=== PATIENT | female | born 1925 | race Caucasian/White ===

== ENCOUNTER 2017-08-17 03:58 | Observation (INO) | payer OTHER, BC ==
[2017-08-17] MEDS ORDERED: NA CHLORIDE 0.9% 1,000 ML ONE (05:12)
[2017-08-17] MEDS ORDERED: METOPROLOL TAR 25 MG TAB ONE (05:12)
[2017-08-17] MEDS ORDERED: ASPIRIN 81 MG CHEWABLE TABLET ONE (05:12)
[2017-08-17] MEDS ORDERED: LORazepam 2 MG/ML VIAL ONE (05:12)
[2017-08-17 05:16] LABS: Absolute Lymphocytes (CBC) 1.3 K/uL (0.7-4.9); Absolute Monocytes 0.6 K/uL (0.1-1.3); Absolute Neutrophil 5.7 K/uL (1.8-8.0); Basophils % 0.5 % (0-1.3); Eosinophils % 2.5 % (0-4.4); Hematocrit 42.6 % (36.0-45.0); Lymphocytes % 16.5 % (15.3-44.8); MCH 30.9 pg (27.0-35.0); MCV 92.9 fL (80-100); MPV 8.7 fL (7.6-11.3); Monocytes % 7.4 % (3.3-12.3); RBC Red Blood Cell Count 4.59 M/uL (3.86-4.86)
[2017-08-17 05:21] LABS: Protime INR 1.04
[2017-08-17 05:29] LABS: Urine Blood TRACE (NEG); Urine Glucose NEGATIVE (NEG); Urine Protein 3+ (NEG); Urine Specific Gravity 1.025 (1.005-1.030); Urine pH 7.5 (5.0-7.0)
[2017-08-17 05:57] LABS: ALT/SGPT 30 U/L (12-78); AST/SGOT 24 U/L (15-37); Albumin 4.2 g/dL (3.4-5.0); Alkaline Phosphatase 85 U/L (45-117); BUN Blood Urea Nitrogen 14 mg/dL (7-18); Bicarbonate 31 mmol/L (21-32); Bilirubin Direct < 0.1 mg/dL (0-0.2); Bilirubin Total 0.4 mg/dL (0.2-1.0); CKMB Creatine Kinase MB < 1.0 ng/mL (0.3-3.6); Creatine Phosphokinase 69 U/L (26-192); Glucose Level 181 mg/dL (74-106); Lipase 117 U/L (73-393); Potassium 3.3 mmol/L (3.5-5.1); Protein, Total 8.6 g/dL (6.4-8.2); Sodium Level 131 mmol/L (136-145); Thyroid Stimulating Hormone 2.64 uIU/mL (0.36-3.74)
[2017-08-17] MEDS ORDERED: IPRATROPIUM BROM 0.5MG/2.5ML ONE (06:07)
[2017-08-17] MEDS ORDERED: LEVALBUTEROL 1.25 MG/3 ML NEB ONE (06:08)
--- NOTE | 2017-08-17 06:18 | ER ---
Nurse's Notes [facility] Name: Lisa Martinez Age: 89 yrs Sex: Female : 1925 Arrival Date: 08/17/2017 Time: 04:07 Bed 17 Private MD: Diagnosis: Palpitations;Essential (primary) hypertension;Dyspnea;Hypokalemia;Nonrheumatic aortic (valve) stenosis Presentation: 08/17 04:09 Presenting complaint: EMS states: they were toned out for report of pt waking up with bb "night sweats and her heart pounding". Transition of care: patient was not received from another setting of care. Onset of symptoms was August 17, 2017. Risk Assessment: Do you want to hurt yourself or someone else? Patient reports no desire to harm self or others. Initial Sepsis Screen: Does the patient meet any 2 criteria? No. Patient's initial sepsis screen is negative. Does the patient have a suspected source of infection? No. Patient's initial sepsis screen is negative. 04:09 Method Of Arrival: EMS: [facility] bb 04:09 Acuity: CHUYITA 2 bb 04:19 Care prior to arrival: IV initiated. 20 GA, in the left antecubital area, Glucose bb check: 182. Historical: - Allergies: 04:10 Norvasc; bb - Home Meds: 04:12 aspirin 81 mg Oral chew 1 tab once daily [Active]; atorvastatin 40 mg Oral tab 1 tab bb nightly [Active]; Caltrate 600 + D 600 mg (1,500 mg)-800 unit Oral chew daily [Active]; cetirizine 10 mg Oral tab 1 tab once daily [Active]; citalopram 20 mg tab 1 tab once daily [Active]; clonidine 0.3 mg/24 hr transdermal ptwk 1 patch once wkly [Active]; doxazosin 2 mg Oral tab 1 tab twice a day [Active]; flecainide 50 mg Oral tab 1 tab every 12 hours [Active]; fluoxetine 40 mg Oral cap 1 cap once daily [Active]; hydralazine 25 mg Oral tab 3 times per day [Active]; levothyroxine 75 mcg tab 1 tab once daily [Active]; metoprolol tartrate 50 mg Oral tab 1 tab twice a day [Active]; nifedipine 30 mg Oral TbER 1 tab once daily [Active]; omeprazole 40 mg Oral cpDR 1 cap once daily [Active]; polyethylene glycol 3350 17 gram/dose Oral powd twice a day [Active]; Senna Plus 8.6-50 mg Oral tab 2 tabs twice a day [Active]; Systane 0.4-0.3 % ophthalmic drop four times a day [Active]; triamterene-hydrochlorothiazid 37.5-25 mg Oral cap 1 cap once daily [Active]; - PMHx: 04:12 Aortic Stenosis; CAD; constipation; Hyperlipidemia; Hypertension; spinal stenosis; bb - Immunization history:: Adult Immunizations up to date. - Social history:: Smoking status: Patient/guardian denies using tobacco, Patient/guardian denies using alcohol, street drugs. - Ebola Screening: : No symptoms or risks identified at this time. - Family history:: pertinent for. Screenin:20 Abuse screen: Denies threats or abuse. Nutritional screening: No deficits noted. bb Tuberculosis screening: Possible symptoms: recent night sweats. Fall Risk Secondary diagnosis (15 points) impaired mobility, IV access (20 points). Ambulatory Aid- Crutches/Cane/Walker (15 pts). Mental Status- Oriented to own ability (0 pts). Total Moreno Fall Scale indicates High Risk Score (45 or more points). Fall prevention measures have been instituted. Side Rails Up X 2 As available patient and family educated on Fall Prevention Program and Strategies. Assessment: 04:24 General: Appears in no apparent distress. comfortable, obese, Behavior is calm, bp cooperative, appropriate for age. Pain: Denies pain. Neuro: Level of Consciousness is awake, alert, obeys commands, Oriented to person, place, time, situation, Appropriate for age. Cardiovascular: No deficits noted. Cardiovascular: Rhythm is sinus rhythm. Respiratory: Airway is patent Respiratory effort is even, unlabored, Respiratory pattern is regular, symmetrical. GI: No signs and/or symptoms were reported involving the gastrointestinal system. : No signs and/or symptoms were reported regarding the genitourinary system. EENT: No deficits noted. Derm: No deficits noted. Musculoskeletal: Circulation, motion, and sensation intact. Range of motion: intact in all extremities. 05:15 Reassessment: PT RESTING QUIETLY, NO ACUTE S/S AT THIS TIME. MILD HTN ON MONITOR. bp RESULTS PENDING. 07:15 Reassessment: Dr. Narayanan at bedside, notified of increased BP, states "I'll put orders in jl7 on [employer].". Vital Signs: 04:12 BP 201 / 88; Pulse 78; Resp 18 S; Temp 98.3(O); Pulse Ox 88% on R/A; Weight 68.04 kg bb (R); Height 5 ft. 2 in. (157.48 cm) (R); 04:13 Pulse Ox 96% on 3 lpm NC; bb 05:00 BP 197 / 70; Pulse 73; Resp 16; Pulse Ox 92% ; bp 06:00 BP 170 / 65; Pulse 63; Resp 16; Pulse Ox 97% on NC; bp 06:30 BP 152 / 63; Pulse 62; Resp 16; Pulse Ox 100% ; bp 07:11 BP 184 / 63; Pulse 72; Resp 16; Pulse Ox 96% ; jl7 04:12 Body Mass Index 27.44 (68.04 kg, 157.48 cm) bb ED Course: 04:07 Patient arrived in ED. bp 04:07 Chester Jung, RN is Primary Nurse. bp 04:10 Triage completed. bb 04:12 Arm band placed on Patient placed in an exam room, on a stretcher, on color television console monitor, bb on pulse oximetry. 04:13 Oxygen administration via nasal cannula \\T\\ 3L/min Response to oxygen therapy: symptoms bb improved. 04:16 EKG done, by field artillery targeting technician. reviewed by Felice Quick MD. oe 04:21 Patient has correct armband on for positive identification. Bed in low position. Call bb light in reach. Side rails up X2. color television console monitor on. Pulse ox on. NIBP on. 04:25 Felice Quick MD is Attending Physician. remi 04:25 Maintain EMS IV. Dressing intact. Good blood return noted. Site clean \\T\\ dry. Gauge \\T\\ bp site: 20 GAUGE LEFT AC. 04:55 X-ray completed. Portable x-ray completed in exam room. Patient tolerated procedure kw well. 04:56 XRAY Chest (1 view) In Process Unspecified. EDMS 06:14 Manuel Narayanan MD is Hospitalizing Provider. remi 06:35 No provider procedures requiring assistance completed. Patient admitted, IV remains in bp place. Administered Medications: 04:45 Drug: NS 0.9% 1000 ml Route: IV; Rate: 125 ml/hr; Site: left antecubital; bp 06:36 Follow up: IV Status: Infusion continued upon admission bp 05:00 Drug: Ativan 0.5 mg Route: IVP; Site: left antecubital; bp 05:57 Follow up: Response: Anxiety decreased bp 05:00 Drug: Lopressor 25 mg Route: PO; bp 05:57 Follow up: Response: No adverse reaction bp 05:00 Drug: Aspirin 81 mg Route: PO; bp 05:58 Follow up: Response: No adverse reaction bp 06:05 Drug: Xopenex 2.5 mg Route: Inhalation; bp 06:05 Drug: AtroVENT Aerosol 0.5 mg Route: Inhalation; bp 06:30 Drug: Potassium Effervescent Tablet 25 mEq Route: PO; bp 06:35 Follow up: Response: No adverse reaction bp Outcome: 06:18 Decision to Hospitalize by Provider. remi 07:54 Admitted to Tele accompanied by tech, via wheelchair, room 201, with chart, Report jl7 called to MAHIN Feng 07:54 Condition: stable 07:54 Discharge instructions given to patient, family, Instructed on the need for admit, Demonstrated understanding of instructions. 07:55 Patient left the ED. jl7 Signatures: Dispatcher [employer] EDMS Felice Quick MD MD cha Ballard, Brenda, RN RN Piedad Barahona Orlando oe Leal, Jahala, RN RN Chester Lima RN RN bp Corrections: (The following items were deleted from the chart) 04:19 04:12 Home Meds: donepezil 5 mg Oral tab 1 tab once daily; obinna yeboah 04: 04:12 Home Meds: fentanyl 12 mcg/hr Topical pt72 1 patch every 72 hours; obinna yeboah : 04:12 Home Meds: Tylenol-Codeine #3 Oral 1 tab every 6 hours; obinna yeboah
--- NOTE | 2017-08-17 06:18 | EDPHYS ---
Physician Documentation [facility] Name: Lisa Martinez Age: 89 yrs Sex: Female : 1925 Arrival Date: 08/17/2017 Time: 04:07 Bed 17 Private MD: ED Physician Felice Quick HPI: 08/17 04:35 This 89 yrs old Female presents to ER via EMS with complaints of Palpitations.remi 04:35 The patient presents with a history of irregular heart beat, heart racing. Context: The remi symptoms occur during sleep, with anxiety, with light activity. Onset: The symptoms/episode began/occurred last night. Duration: The patient or guardian reports multiple episodes, that have now resolved. Modifying factors: The symptoms are aggravated by nothing. The symptoms are alleviated by nothing. Associated signs and symptoms: The patient has no apparent associated signs or symptoms. The patient has not experienced similar symptoms in the past. Historical: - Allergies: 04:10 Norvas; bb - Home Meds: 04:12 aspirin 81 mg Oral chew 1 tab once daily [Active]; atorvastatin 40 mg Oral tab 1 tab bb nightly [Active]; Caltrate 600 + D 600 mg (1,500 mg)-800 unit Oral chew daily [Active]; cetirizine 10 mg Oral tab 1 tab once daily [Active]; citalopram 20 mg tab 1 tab once daily [Active]; clonidine 0.3 mg/24 hr transdermal ptwk 1 patch once wkly [Active]; doxazosin 2 mg Oral tab 1 tab twice a day [Active]; flecainide 50 mg Oral tab 1 tab every 12 hours [Active]; fluoxetine 40 mg Oral cap 1 cap once daily [Active]; hydralazine 25 mg Oral tab 3 times per day [Active]; levothyroxine 75 mcg tab 1 tab once daily [Active]; metoprolol tartrate 50 mg Oral tab 1 tab twice a day [Active]; nifedipine 30 mg Oral TbER 1 tab once daily [Active]; omeprazole 40 mg Oral cpDR 1 cap once daily [Active]; polyethylene glycol 3350 17 gram/dose Oral powd twice a day [Active]; Senna Plus 8.6-50 mg Oral tab 2 tabs twice a day [Active]; Systane 0.4-0.3 % ophthalmic drop four times a day [Active]; triamterene-hydrochlorothiazid 37.5-25 mg Oral cap 1 cap once daily [Active]; - PMHx: 04:12 Aortic Stenosis; CAD; constipation; Hyperlipidemia; Hypertension; spinal stenosis; bb - Immunization history:: Adult Immunizations up to date. - Social history:: Smoking status: Patient/guardian denies using tobacco, Patient/guardian denies using alcohol, street drugs. - Ebola Screening: : No symptoms or risks identified at this time. - Family history:: pertinent for. ROS: 04:35 Constitutional: Negative for fever, chills, and weight loss, Eyes: Negative for injury, remi pain, redness, and discharge, ENT: Negative for injury, pain, and discharge, Neck: Negative for injury, pain, and swelling, Respiratory: Negative for shortness of breath, cough, wheezing, and pleuritic chest pain, Abdomen/GI: Negative for abdominal pain, nausea, vomiting, diarrhea, and constipation, Back: Negative for injury and pain, : Negative for injury, bleeding, discharge, and swelling, MS/Extremity: Negative for injury and deformity, Skin: Negative for injury, rash, and discoloration, Neuro: Negative for headache, weakness, numbness, tingling, and seizure, Psych: Negative for depression, anxiety, suicide ideation, homicidal ideation, and hallucinations, Allergy/Immunology: Negative for hives, rash, and allergies, Endocrine: Negative for neck swelling, polydipsia, polyuria, polyphagia, and marked weight changes, Hematologic/Lymphatic: Negative for swollen nodes, abnormal bleeding, and unusual bruising. 04:35 Cardiovascular: Positive for chest pain, palpitations. Exam: 04:35 Constitutional: This is a well developed, well nourished patient who is awake, alert, remi and in no acute distress. Head/Face: Normocephalic, atraumatic. Eyes: Pupils equal round and reactive to light, extra-ocular motions intact. Lids and lashes normal. Conjunctiva and sclera are non-icteric and not injected. Cornea within normal limits. Periorbital areas with no swelling, redness, or edema. ENT: Nares patent. No nasal discharge, no septal abnormalities noted. Tympanic membranes are normal and external auditory canals are clear. Oropharynx with no redness, swelling, or masses, exudates, or evidence of obstruction, uvula midline. Mucous membranes moist. Neck: Trachea midline, no thyromegaly or masses palpated, and no cervical lymphadenopathy. Supple, full range of motion without nuchal rigidity, or vertebral point tenderness. No Meningismus. Chest/axilla: Normal chest wall appearance and motion. Nontender with no deformity. No lesions are appreciated. Cardiovascular: Regular rate and rhythm with a normal S1 and S2. No gallops, murmurs, or rubs. Normal PMI, no JVD. No pulse deficits. Respiratory: Lungs have equal breath sounds bilaterally, clear to auscultation and percussion. No rales, rhonchi or wheezes noted. No increased work of breathing, no retractions or nasal flaring. Abdomen/GI: Soft, non-tender, with normal bowel sounds. No distension or tympany. No guarding or rebound. No evidence of tenderness throughout. Back: No spinal tenderness. No costovertebral tenderness. Full range of motion. Female : Normal external genitalia. Skin: Warm, dry with normal turgor. Normal color with no rashes, no lesions, and no evidence of cellulitis. MS/ Extremity: Pulses equal, no cyanosis. Neurovascular intact. Full, normal range of motion. Neuro: Awake and alert, GCS 15, oriented to person, place, time, and situation. Cranial nerves II-XII grossly intact. Motor strength 5/5 in all extremities. Sensory grossly intact. Cerebellar exam normal. Normal gait. Psych: Awake, alert, with orientation to person, place and time. Behavior, mood, and affect are within normal limits. 06:09 Musculoskeletal/extremity: DVT Exam: No signs of deep vein thrombosis. no pain, no remi swelling, no tenderness, negative Homans' sign noted on exam, no appreciated bluish discoloration, no erythema, no increased warmth. Vital Signs: 04:12 BP 201 / 88; Pulse 78; Resp 18 S; Temp 98.3(O); Pulse Ox 88% on R/A; Weight 68.04 kg bb (R); Height 5 ft. 2 in. (157.48 cm) (R); 04:13 Pulse Ox 96% on 3 lpm NC; bb 05:00 BP 197 / 70; Pulse 73; Resp 16; Pulse Ox 92% ; bp 06:00 BP 170 / 65; Pulse 63; Resp 16; Pulse Ox 97% on NC; bp 06:30 BP 152 / 63; Pulse 62; Resp 16; Pulse Ox 100% ; bp 07:11 BP 184 / 63; Pulse 72; Resp 16; Pulse Ox 96% ; jl7 04:12 Body Mass Index 27.44 (68.04 kg, 157.48 cm) bb MDM: 04:25 Patient medically screened. [facility] 04:37 Data reviewed: vital signs, nurses notes, lab test result(s), EKG, radiologic studies, remi plain films. 08/17 04:28 Order name: Basic Metabolic Panel; Complete Time: 06:07 [facility] 08/17 04:28 Order name: CBC with Diff; Complete Time: 05:41 [facility] 08/17 04:28 Order name: Ckmb; Complete Time: 06:07 [facility] 08/17 04:28 Order name: CPK; Complete Time: 06:07 [facility] 08/17 04:28 Order name: LFT's; Complete Time: 06:07 [facility] 08/17 04:28 Order name: Magnesium; Complete Time: 06:07 [facility] 08/17 04:28 Order name: PT-INR; Complete Time: 05:39 [facility] 08/17 04:28 Order name: Ptt, Activated; Complete Time: 05:39 [facility] 08/17 04:28 Order name: Troponin (emerg Dept Use Only) [facility] 08/17 04:28 Order name: Lipase; Complete Time: 06:07 [facility] 08/17 04:28 Order name: TSH; Complete Time: 06:07 [facility] 08/17 04:28 Order name: Urine Culture [facility] 08/17 05:02 Order name: Urine Dipstick--Ancillary (enter results); Complete Time: 05:39 08/17 06:09 Order name: BNP [facility] 08/17 04:28 Order name: XRAY Chest (1 view) [facility] 08/17 04:28 Order name: EKG; Complete Time: 04:29 [facility] 08/17 06:23 Order name: CONS Physician Consult [facility] 08/17 06:28 Order name: Echo with Doppler [facility]MD 08/17 06:28 Order name: Basic Metabolic Panel [facility] 08/17 06:28 Order name: Basic Metabolic Panel [facility] 08/17 06:28 Order name: Troponin I EDMD 08/17 06:28 Order name: Troponin I [facility]MD 08/17 06:28 Order name: Troponin I [facility]MD 08/17 04:28 Order name: Cardiac monitoring; Complete Time: 04:30 [facility] 08/17 04:28 Order name: EKG - Nurse/Tech; Complete Time: 04:30 [facility] 08/17 04:28 Order name: IV Saline Lock; Complete Time: 04:30 [facility] 08/17 04:28 Order name: Labs collected and sent; Complete Time: 05:05 [facility] 08/17 04:28 Order name: O2 Per Protocol; Complete Time: 04:30 [facility] 08/17 04:28 Order name: O2 Sat Monitoring; Complete Time: 04:30 [facility] 08/17 04:28 Order name: Urine Dipstick-Ancillary (obtain specimen); Complete Time: 05:06 [facility] 08/17 06:28 Order name: Consistent Carb (ADA) [address] Rick EDMS 08/17 06:28 Order name: EKG Electrocardiogram EDMS 08/17 06:28 Order name: EKG Electrocardiogram EDMS 08/17 06:28 Order name: EKG Electrocardiogram EDMS 08/17 06:29 Order name: EKG Electrocardiogram EDMS Administered Medications: 04:45 Drug: NS 0.9% 1000 ml Route: IV; Rate: 125 ml/hr; Site: left antecubital; bp 06:36 Follow up: IV Status: Infusion continued upon admission bp 05:00 Drug: Ativan 0.5 mg Route: IVP; Site: left antecubital; bp 05:57 Follow up: Response: Anxiety decreased bp 05:00 Drug: Lopressor 25 mg Route: PO; bp 05:57 Follow up: Response: No adverse reaction bp 05:00 Drug: Aspirin 81 mg Route: PO; bp 05:58 Follow up: Response: No adverse reaction bp 06:05 Drug: Xopenex 2.5 mg Route: Inhalation; bp 06:05 Drug: AtroVENT Aerosol 0.5 mg Route: Inhalation; bp 06:30 Drug: Potassium Effervescent Tablet 25 mEq Route: PO; bp 06:35 Follow up: Response: No adverse reaction bp Disposition: 08/17/17 06:18 Hospitalization ordered by Manuel Narayanan for Observation. Preliminary diagnosis are Palpitations, Essential (primary) hypertension, Dyspnea, Hypokalemia, Nonrheumatic aortic (valve) stenosis. - Bed requested for Telemetry/MedSurg (observation). - Status is Observation. jl7 - Condition is Fair. - Problem is new. - Symptoms have improved. UTI on Admission? No Signatures: Dispatcher [employer] EDMS Tasha Mulligan RN RN mw Anderson, Corey, MD MD cha Ballard, Brenda, MAHIN RN Ruth Hernandez RN RN jl7 Chester Jung RN RN bp Botello, Elizabeth eb Corrections: (The following items were deleted from the chart) 04:19 04:12 Home Meds: donepezil 5 mg Oral tab 1 tab once daily; bb bb 04:19 04:12 Home Meds: fentanyl 12 mcg/hr Topical pt72 1 patch every 72 hours; obinna yeboah 04:19 04:12 Home Meds: Tylenol-Codeine #3 Oral 1 tab every 6 hours; obinna yeboah 06:28 06:18 Hospitalization Ordered by Manuel Narayanan MD for Observation. Preliminary diagnosis eb is Palpitations; Essential (primary) hypertension; Dyspnea; Hypokalemia. Bed requested for Telemetry/MedSurg (observation). Status is Observation. Condition is Fair. Problem is new. Symptoms have improved. UTI on Admission? No. remi 06:31 06:28 08/17/2017 06:18 Hospitalization Ordered by Manuel Narayanan MD for Observation. mw Preliminary diagnosis is Palpitations; Essential (primary) hypertension; Dyspnea; Hypokalemia. Bed requested for Telemetry/MedSurg (observation). Status is Observation. Condition is Fair. Problem is new. Symptoms have improved. UTI on Admission? No. eb 07:19 06:31 08/17/2017 06:18 Hospitalization Ordered by Manuel Narayanan MD for Observation. remi Preliminary diagnosis is Palpitations; Essential (primary) hypertension; Dyspnea; Hypokalemia. Bed requested for Telemetry/MedSurg (observation). Status is Observation. Condition is Fair. Problem is new. Symptoms have improved. UTI on Admission? No. mw 07:55 07:19 08/17/2017 06:18 Hospitalization Ordered by Manuel Narayanan MD for Observation. jl7 Preliminary diagnosis is Palpitations; Essential (primary) hypertension; Dyspnea; Hypokalemia; Nonrheumatic aortic (valve) stenosis. Bed requested for Telemetry/MedSurg (observation). Status is Observation. Condition is Fair. Problem is new. Symptoms have improved. UTI on Admission? No. remi
[2017-08-17] MEDS ORDERED: ACETAMINOPHEN 500 MG TAB PO PRN (06:22)
[2017-08-17] MEDS ORDERED: ONDANSETRON 4 MG/2 ML VIAL IV PRN (06:22)
[2017-08-17] MEDS ORDERED: MORPHINE 4 MG/ML SYR IV PRN (06:22)
[2017-08-17] MEDS ORDERED: POTASSIUM 25 MEQ EFFERV TAB ONE (06:35)
[2017-08-17] MEDS: ASPIRIN EC 81 MG TAB PO SCH (08:18)
[2017-08-17] MEDS: VALSARTAN 80 MG TAB PO SCH ×2 (08:45→09:00)
[2017-08-17] MEDS: DOXAZOSIN 2 MG TAB PO SCH ×2 (08:45→21:17)
[2017-08-17] MEDS: HYDRALAZINE HCL 10 MG TABLET PO SCH ×3 (08:45→21:00)
--- NOTE | 2017-08-17 08:46 | RAD REPORT ---
EXAM DESCRIPTION: RAD - Chest Single View - 08/17/2017 4:56 am CLINICAL HISTORY: COUGH Chest pain. COMPARISON: Chest Single View dated 02/09/2017; Chest Single View dated 11/28/2016; Chest Single View dated 05/09/2016; Chest Single View dated 05/08/2016 FINDINGS: Portable technique limits examination quality. The lungs are grossly clear. The heart is normal in size. No displaced fractures. IMPRESSION: No acute intrathoracic process suspected.
[2017-08-17 08:48] VITALS: BMI 28.0
[2017-08-17] MEDS ORDERED: CLONIDINE 0.3 MG/PATCH TD SCH (09:00)
--- NOTE | 2017-08-17 10:50 | EKG ---
Test Date: 2017-08-17 Test Time: 04:10:09 Embossing Press Operator Apprentice: NANCY MEASUREMENT RESULTS: Intervals: Rate: 74 ME: 168 QRSD: 66 QT: 430 QTc: 477 [place]: P: 90 ME: 168 QRS: 42 T: 57 INTERPRETIVE STATEMENTS: Normal sinus rhythm Nonspecific ST abnormality Abnormal ECG Compared to ECG 04/04/2017 07:44:45 ST (T wave) deviation now present Left ventricular hypertrophy no longer present Early repolarization no longer present Electronically Signed On 08-17-17 10:49:32 CDT by Matthew Mendes
[2017-08-17] MEDS: NIFEDIPINE XL 30 MG TABLET PO SCH (11:22)
--- NOTE | 2017-08-17 12:12 | ECHO ---
HEIGHT: 5 ft 2 in WEIGHT: 153 lb 1 oz DATE OF STUDY: 08/17/[address]: Felice Quick MD 2-DIMENSIONAL: YES M.MODE: YES DOPPLER: YES COLOR FLOW: YES TDS: NO PORTABLE: NO DEFINITY: NO BUBBLE STUDY: NO DIAGNOSIS: CHEST PAIN CARDIAC HISTORY: CATHERIZATION: YES SURGERY: NO PROSTHETIC VALVE: NO PACEMAKER: NO MEASUREMENTS (cm) DIASTOLIC (NORMALS) SYSTOLIC (NORMALS) IVSd 1.3 (0.6-1.2) LA Diam 4.2 (1.9-4.0) LVEF 74% LVIDd 3.2 (3.5-5.7) LVIDs 1.9 (2.0-3.5) %FS 41% LVPWd 1.4 (0.6-1.2) Ao Diam 2.4 (2.0-3.7) 2 DIMENSIONAL ASSESSMENT: RIGHT ATRIUM: NORMAL LEFT ATRIUM: DILATED RIGHT VENTRICLE: NORMAL LEFT VENTRICLE: LEFT VENTRICULAR HYPERTROPHY TRICUSPID VALVE: NORMAL MITRAL VALVE: MITRAL ANNULAR CALCIFICATION PULMONIC VALVE: NORMAL AORTIC VALVE: STENOTIC PERICARDIAL EFFUSION: NONE AORTIC ROOT: NORMAL LEFT VENTRICULAR WALL MOTION: LOW LEFT VENTRICULAR COMPLIANCE. DOPPLER/COLOR FLOW: MODERATE AORTIC REGURGITATION, AORTIC STENOSIS AREA 1.0 CENTIMETERS SQUARED. GRADIENT 36mmHg. COMMENTS: MODERATE AORTIC STENOSIS AREA 1.0 CENTIMETERS SQUARED. MODERATE AORTIC REGURGITATION. LEFT VENTRICULAR HYPERTROPHY. NORMAL EJECTION FRACTION. NORMAL EJECTION FRACTION. DIASTOLIC DYSFUNCTION. MITRAL ANNULAR CALCIFICATION. LEFT ATRIAL ENLARGEMENT. TECHNOLOGIST: AVERY MARCUS
[2017-08-17] MEDS: SOTALOL HCL 80 MG TAB PO SCH ×2 (12:53→17:40)
[2017-08-17] MEDS ORDERED: METOPROLOL TAR 25 MG TAB PO SCH (18:00)
--- NOTE | 2017-08-18 01:49 | CON ---
Date of Consultation: 08/17/[address] Narayanan's service on 08/17/2017. I saw the patient on 08/17/2017. Reason For Consultation: Rapid atrial fibrillation, dyspnea on exertion, hypertension, and moderate aortic stenosis. History Of Present Illness: Ms. Martinez is an 89-year-old white woman. She is well known to me from pr evious office visits and admission. She has had a history of moderate aortic stenosis, gastroesophag eal reflux disease, dyslipidemia, hypertension, has had intermittent atrial fibrillation in the past that has resolved on beta-blockers, but she comes back with recurrent atrial fibrillation and rapid v entricular response, weakness, was found to be hypokalemic, slightly low sodium, glucose was 181, neg ative BNP and troponin. By the time I saw her, she has already converted back to normal rhythm. She denied chest pain. Denied syncope. Denied pedal edema, PND, orthopnea. Allergies: NORVASC. Review of Systems: Negative. Social History: Negative. Family History: Negative. Medications: At home include Zocor, aspirin, triamterene with hydrochlorothiazide, Catapres, hydrala zine, Lopressor 75 mg q.h.s., and Prilosec. Physical Examination: General: She appears rather weak, but no acute distress. She was in sinus bradycardia when I saw he r. HEENT: Negative. Neck: Supple with aortic stenosis, bruits in both carotids. Chest: Clear. Cardiac Exam: Revealed a regular rhythm and rate with an S4 gallop and aortic stenosis murmur, 3/6 s ystolic ejection at the right third intercostal space that radiated to the carotid. Abdomen: Obese but benign. Extremities: Revealed trace edema. Diagnostic Data: As stated earlier. Impression And Plan: 1.Recurrent atrial fibrillation. I am going to take her off the Lopressor and try her on Betapace. We will keep her on aspirin. Start Lovenox. Another echocardiogram is pending. 2.Hypertension, well controlled. 3.Dyslipidemia, well controlled. 4.Gastroesophageal reflux disease, well controlled. 5.History of moderate aortic stenosis. 6.Slight hypokalemia and hyponatremia that are being corrected. I will continue to follow the patie nt with Dr. Narayanan. TENISHA/DUONG Voice ID: [id number] Report ID: [id number]
[2017-08-18 04:59] LABS: Absolute Lymphocytes (CBC) 1.7 K/uL (0.7-4.9); Absolute Monocytes 0.8 K/uL (0.1-1.3); Absolute Neutrophil 5.7 K/uL (1.8-8.0); Basophils % 0.7 % (0-1.3); Eosinophils % 3.2 % (0-4.4); Hematocrit 39.7 % (36.0-45.0); Lymphocytes % 19.8 % (15.3-44.8); MCH 31.2 pg (27.0-35.0); MPV 8.4 fL (7.6-11.3); RBC Red Blood Cell Count 4.32 M/uL (3.86-4.86)
[2017-08-18 05:18] LABS: Potassium 3.4 mmol/L (3.5-5.1)
[2017-08-18] MEDS: SOTALOL HCL 80 MG TAB PO SCH (05:38)
--- NOTE | 2017-08-18 05:47 | HP ---
Date of Admission: 08/17/2017 Chief Complaint: Chest pain and fluttering sensation. History Of Present Illness: An 89-year-old female patient with multiple medical problems, living at [facility], was doing fine until around 8 or 8:30 p.m. Yesterday, she started to have this shivering type of feeling/fluttering type of feeling in her chest. Her blood pressure, which was checked by facility staff member, systolic blood pressure was higher than 200. She was given her evening dose of medication. Her blood pressure did come down and a few hours later, she went to bed and around 2 or 3 o'clock in the morning, she woke up from sleep because she was sweating and had that shivering/fluttering type of sensation in her chest and her blood pressure was elevated again at that time. She had some vague chest discomfort. She was sent to emergency room after she was evaluated in ER, She was admitted to the hospital. She was given 1 dose of metoprolol by mouth. When I saw her, her systolic blood pressure was around 186 in the emergency room this morning. Her daughter was present with her at bedside. Allergies: TO AMLODIPINE. Medication List: Reviewed. Review of Systems: Cardiovascular: As mentioned above. Constitutional: As mentioned above. Musculoskeletal: Has chronic arthritis problem. All other systems reviewed are negative. Social History: Negative for smoking or alcohol use. Family History: Significant for stroke, leukemia, coronary artery disease. Past Surgical History: Significant for coronary artery angioplasty and stent placement x2 in 2000, right carotid artery endarterectomy, hysterectomy, tonsillectomy. Past Medical History: Significant for coronary artery disease, hypertension, carotid artery stenosis, hyperlipidemia, osteoarthritis at multiple sites, hypothyroidism, depression, impaired fasting glucose, gastroesophageal reflux disease, aortic valve stenosis. Physical Examination: Vital signs: Reviewed. Temperature 98.3, pulse 78, respiratory rate 18, blood pressure 201/88. Oxygen saturation 88%. Height 5 feet 2 inches. Weight 68.04 kg. General: Awake, alert, oriented, not in distress. HEENT: Head atraumatic, normocephalic. Conjunctivae nonerythematous. Sclerae white. Mouth, no thrush or edema noted. Ears/Nose, no mass, lesion, discharge noted. Neck: Supple. No JVD, lymph nodes, bruit, thyromegaly noted. Lungs: Bilateral good equal air entry. Clear to auscultation. No rhonchi. No rales. Heart: The patient has systolic murmur unchanged. No gallop. Abdomen: Soft, bowel sounds normal. No guarding, rigidity, tenderness, mass, hepatosplenomegaly, distention, or bruit noted. Extremities: No leg edema. No calf tenderness. Skin: No rash, ulcer, cellulitis. Lymphatics: No lymph node enlargement in neck, supraclavicular, infraclavicular region. Neuro: No focal neurological deficit. Chest: Unremarkable. External Genitalia: Deferred. Rectal: Deferred. Laboratory Data: White count 7.8, hemoglobin 14.2, platelets 252. PT, PTT normal. Sodium 131, potassium 3.3, chloride 97, bicarb 31, BUN 14, creatinine 0.80, glucose 181. Liver function tests normal. Troponin less than 0.02. TSH 2.64. Urinalysis; 3+ protein, otherwise normal. Impression: 1. Chest pain. 2. Palpitation. 3. Hypertension. 4. Coronary artery disease. 5. Hyperlipidemia. 6. Hypothyroidism. 7. Depression. 8. Impaired fasting glucose. 9. Osteoarthritis, multiple sites. 10. Carotid artery stenosis. 11. Aortic valve stenosis. 12. Gastroesophageal reflux disease. Plan: Admit the patient to hospital for further evaluation and management of this problem. The patient will be admitted to telemetry. Consult Cardiology. Home medications will be continued per order. We will get serial cardiac enzymes. DVT prophylaxis will be given per order. Details and plan of treatment discussed with her. Echocardiogram done today, results reviewed. YENY/DUONG Voice ID: [id number] MTDJessica
[2017-08-18 08:44] VITALS: O2SAT 94
[2017-08-18] MEDS ORDERED: POTASSIUM CL SA 10 MEQ TAB PO ONE (09:30)
[2017-08-18] MEDS: NIFEDIPINE XL 30 MG TABLET PO SCH (09:43)
[2017-08-18] MEDS: ASPIRIN EC 81 MG TAB PO SCH (09:43)
[2017-08-18] MEDS: DOXAZOSIN 2 MG TAB PO SCH (09:44)
[2017-08-18] MEDS: VALSARTAN 80 MG TAB PO SCH (09:44)
[2017-08-18] MEDS: HYDRALAZINE HCL 10 MG TABLET PO SCH (09:45)
--- NOTE | 2017-08-18 11:11 | EKG ---
Test Date: 2017-08-18 Test Time: 07:14:58 Tie Fastener: KARLA MEASUREMENT RESULTS: Intervals: Rate: 73 KS: 152 QRSD: 72 QT: 452 QTc: 497 [place]: P: 39 KS: 152 QRS: 40 T: 27 INTERPRETIVE STATEMENTS: Normal sinus rhythm LVH with secondary repolarization changes Prolonged QT Abnormal ECG Compared to ECG 08/17/2017 04:10:09 Left ventricular hypertrophy now present Prolonged QT interval now present ST (T wave) deviation still present Electronically Signed On 08-18-17 11:11:02 CDT by Pascual Charles
[2017-08-18 12:52] VITALS: BP 187/79; TEMP 98.3
--- NOTE | 2017-08-19 13:00 | PN ---
Date of Progress Note: 08/18/2017 Ms. Martinez was admitted and seen on 08/17/2017 for aortic stenosis, atrial fibrillation, and weakness. Was taken off beta-irina, placed on Betapace. Remains in sinus rhythm to sinus bradycardia. No s ymptoms. Not a great candidate for anticoagulation because of history of bleeding in the past. I wo uld continue her Betapace and she can go home and she will see me in the office in the next 2 weeks. TENISHA/DUONG Voice ID: [id number] Report ID: [id number]
--- NOTE | 2017-08-19 15:06 | DS ---
Date of Discharge: 08/18/2017 Disposition: Discharged to go to [facility]. Physical Examination: HEENT: Unremarkable. Lungs: Clear to auscultation. Heart: Sounds normal. Abdomen: Soft, bowel sounds normal. No guarding, rigidity, tenderness, or distention. Extremities: No leg edema. Discharge Medications And Instructions: Continue prior home medication except do not give any metoprolol, do not give flecainide. Start sotalol 80 mg 2 times a day. Follow up at my office as per her schedule appointment which is next month in August and follow with Dr. Mendes in 1-2 weeks. Hospital Course: An 89-year-old female patient, admitted to the hospital with vague chest discomfort and palpitation type of feeling. Please see dictated H and P for more information. After patient was evaluated in the emergency room, she was admitted to the hospital. ID was ruled out by getting serial cardiac enzymes. Cardiology consultation was obtained from Dr. Mendes. The patient had echocardiogram that showed normal ejection fraction and moderate aortic stenosis. Dr. Mendes started her on sotalol for paroxysmal atrial fibrillation. Her home medication list that was in the hospital system was not accurate as it listed flecainide and according to my office records she is not on this medication, and I talked to Dr. Mendes, and he has not started this medication as outpatient either, and the patient does not see any other physician besides me and Dr. Mendes. So this home medication list reviewed by nursing staff is not accurate. We have discontinued metoprolol and started her on sotalol. I will see her on outpatient basis as per her scheduled appointment. Final Diagnoses: 1. Paroxysmal atrial fibrillation. 2. Chest pain. 3. Moderate aortic valve stenosis .. 4. Coronary artery disease. 5. Hypertension. 6. Hyperlipidemia. 7. Hypothyroidism. 8. Gastroesophageal reflux disease. 9. Osteoarthritis from multiple sites. YENY/MODL Voice ID: [id number] Report ID: [id number] HEYDI
== END 2017-08-18 12:08 | disposition home or self-care (01) ==
LOC: ER 03:58 → ERHOLD 06:20 → 2ND 07:40
PROVIDERS: ADMIT Internal Medicine; ATTEND Internal Medicine
DX: I48.0 Paroxysmal atrial fibrillation (principal); R07.9 Chest pain, unspecified; I35.0 Nonrheumatic aortic (valve) stenosis; I25.10 Atherosclerotic heart disease of native coronary artery without angina pectoris; I10 Essential (primary) hypertension; E78.5 Hyperlipidemia, unspecified; E03.9 Hypothyroidism, unspecified; K21.9 Gastro-esophageal reflux disease without esophagitis; M19.90 Unspecified osteoarthritis, unspecified site; Z95.5 Presence of coronary angioplasty implant and graft
CPT/HCPCS: 36415 ×2; 71045; 80048 ×2; 80076; 81003; 82550; 82553; 83690; 83735; 83880; 84443; 84484 ×3; 85025 ×2; 85610; 85730; 87086; 87088; 93005 ×2; 93306; 96361; 96374; 99285; G0378 ×2; J7030

== ENCOUNTER 2017-08-21 19:21 | Observation (INO) | payer OTHER, BC ==
[2017-08-21] MEDS ORDERED: METOPROLOL TARTRATE 5 MG/5 ML INJ IV STA (19:33)
[2017-08-21 20:15] LABS: Absolute Lymphocytes (CBC) 2.4 K/uL (0.7-4.9); Absolute Neutrophil 6.5 K/uL (1.8-8.0); Basophils % 1.2 % (0-1.3); Hematocrit 41.8 % (36.0-45.0); Lymphocytes % 23.2 % (15.3-44.8); MCH 31.4 pg (27.0-35.0); MCV 91.7 fL (80-100); MPV 8.1 fL (7.6-11.3); RBC Red Blood Cell Count 4.56 M/uL (3.86-4.86)
[2017-08-21 20:44] LABS: ALT/SGPT 24 U/L (12-78); AST/SGOT 20 U/L (15-37); Albumin 3.8 g/dL (3.4-5.0); Alkaline Phosphatase 78 U/L (45-117); BUN Blood Urea Nitrogen 21 mg/dL (7-18); Bicarbonate 30 mmol/L (21-32); Bilirubin Total 0.4 mg/dL (0.2-1.0); CKMB Creatine Kinase MB < 1.0 ng/mL (0.3-3.6); Creatine Phosphokinase 59 U/L (26-192); Glucose Level 141 mg/dL (74-106); Magnesium 2.3 mg/dL (1.8-2.4); Protein, Total 7.8 g/dL (6.4-8.2); Sodium Level 132 mmol/L (136-145); Thyroid Stimulating Hormone 3.78 uIU/mL (0.36-3.74)
[2017-08-21] MEDS ORDERED: ENOXAPARIN 60 MG/0.6 ML SQ SCH (21:00)
[2017-08-21 21:31] VITALS: BMI 28.1
[2017-08-21] MEDS ORDERED: SOTALOL HCL 80 MG TAB PO ONE (21:57)
[2017-08-22 02:49] VITALS: O2SAT 95
[2017-08-22] MEDS ORDERED: SOTALOL HCL 80 MG TAB PO SCH (06:00)
[2017-08-22] MEDS: SOTALOL HCL 80 MG TAB PO SCH ×2 (07:42→17:05)
[2017-08-22] MEDS ORDERED: ENOXAPARIN 60 MG/0.6 ML SQ SCH (09:00)
[2017-08-22] MEDS ORDERED: CLONIDINE 0.3 MG/PATCH TD SCH (09:00)
[2017-08-22] MEDS: NIFEdipine 10 MG CAP PO SCH (09:59)
[2017-08-22] MEDS: MAXZIDE (HCTZ 25/TRIAMTERENE 37.5MG) TAB PO SCH (09:59)
[2017-08-22] MEDS: SENOSIDES 8.6 MG TAB PO SCH ×2 (10:00→20:16)
[2017-08-22] MEDS: FLUOXETINE 20 MG CAP PO SCH (10:00)
[2017-08-22] MEDS: PANTOPRAZOLE 40MG TABLET PO SCH (10:00)
[2017-08-22] MEDS: POLYETHYL GLY 3350 17 GM/DOSE PO SCH ×2 (10:00→20:16)
[2017-08-22] MEDS: CETIRIZINE HCL 5 MG TABLET PO SCH (10:00)
[2017-08-22] MEDS: DOXAZOSIN 2 MG TAB PO SCH ×2 (10:00→20:16)
[2017-08-22] MEDS: HYDRALAZINE HCL 25 MG TABLET PO SCH ×4 (10:00→20:17)
[2017-08-22] MEDS: LEVOTHYROXINE SOD 0.075 MG TAB PO SCH (10:00)
[2017-08-22] MEDS: ENOXAPARIN 60 MG/0.6 ML SQ SCH ×2 (10:00→20:15)
[2017-08-22] MEDS: CALCIUM CARB 500MG/VIT D 200 IU TAB PO SCH (10:08)
--- NOTE | 2017-08-22 10:54 | HP ---
Date of Admission: 08/21/2017 Chief Complaint: Not feeling good. History Of Present Illness: Ms. Martinez is a very pleasant 89-year-old female patient, who came into of [facility] today with her daughter with complaints of not feeling good. The patient says that she started to have some feeling of bloating, feeling weak, tired, no energy, and this morning when she was in th e shower, she felt like she may actually faint but she did not faint, she sat down, and somebody noti сергей her that she was appearing extremely pale. She denies any chest pain or shortness of breath. No diarrhea. No vomiting. No bleeding. After she was evaluated at our office, she was admitted to [facility] with concerns about atrial fibrillation with rapid ventricular rate. Medications List: Reviewed. Review of Systems: Constitutional: As mentioned above. Cardiovascular: As mentioned above. All other systems reviewed and negative. Allergies: AMLODIPINE. Social History: Negative for smoking, alcohol use. Family History: Significant for stroke, leukemia, coronary artery disease. Code Status: According to my discussion with the patient at the office today in presence of her daug hter, advance directive was discussed and the patient informed me very clearly but she does not want any heroic measures like CPR, defibrillation, or ventilator support in the event of cardiopulmonary a rrest. Family History: Significant for stroke, leukemia, coronary artery disease. Past Surgical History: Significant for coronary artery angioplasty with stent placement x2 in 2000, right carotid artery endarterectomy, hysterectomy, tonsillectomy. Past Medical History: Significant for coronary artery disease, hypertension, carotid artery stenosis , hyperlipidemia, osteoarthritis at multiple sites, paroxysmal atrial fibrillation, hypothyroidism, d epression, impaired fasting glucose, gastroesophageal reflux disease, aortic valve stenosis. Her echocardiogram done on 08/17/2017 showing normal ejection fraction of 74% with moderate aortic st enosis. Physical Examination: General: Awake, alert, oriented, not in distress. HEENT: Head atraumatic, normocephalic. Conjunctivae nonerythematous. Sclerae white. Mouth, no thr ush or edema noted. Ears/Nose, no mass, lesion, discharge noted. Neck: Supple. No JVD, lymph nodes, bruit, thyromegaly noted. Lungs: Bilateral good equal air entry. Clear to auscultation. No rhonchi. No rales. Heart: Presence of systolic murmur. No gallop. Abdomen: Soft, bowel sounds normal. No guarding, rigidity, tenderness, mass, hepatosplenomegaly, dis tention, or bruit noted. Extremities: No leg edema. No calf tenderness. Skin: No rash, ulcer, cellulitis. Lymphatics: No lymph node enlargement in neck, supraclavicular, infraclavicular region. Neuro: No focal neurological deficit. Chest: Unremarkable. External Genitalia: Deferred. Rectal: Deferred. Laboratory Data: White count 10.2, hemoglobin 14.3, platelets 300, sodium 132, potassium 4, chloride 96, bicarb 30, BUN 21, creatinine 1, glucose 141. Liver function tests unremarkable. TSH 3.78, pro calcitonin 0.05. Troponin less than 0.02. Impression: 1.Atrial fibrillation with rapid ventricular rate. 2.Hypertension. 3.Coronary artery disease. 4.Moderate aortic valve stenosis. 5.Hyperlipidemia. 6.Hypothyroidism. 7.Gastroesophageal reflux disease. 8.Osteoarthritis, multiple sites. Plan: We will go ahead and admit the patient to hospital for further evaluation and management of th is problem. The patient will be admitted to telemetry floor. We will continue sotalol, Lopressor 5 mg, slow IV push was given. We will start the patient on Lovenox. Home medications will be continue d per order and I will see her tomorrow for followup. DNR order will be written in the chart. Home medications will be continued per order. Details and plan of treatment discussed with the patient. YENY/MODL Voice ID: [id number]
--- NOTE | 2017-08-22 11:05 | CON ---
Date of Consultation: 08/22/[address] Narayanan's service on 08/21/2017. I saw the patient on 08/22/2017. Reason For Consultation: Atrial fibrillation. History Of Present Illness: Ms. Martinez is an 89-year-old white woman. She has had paroxysmal atrial f ibrillation before. She was just here in the hospital for atrial fibrillation with rapid ventricular response. She was treated with beta-blockade and then switched to Betapace and she converted to nor mal rhythm. She remained in normal rhythm for about 48 hours prior to her discharge. She comes back with palpitation, rapid atrial fibrillation again, was given beta-irina this time, remained on sot alol 80 mg b.i.d. and still has a heart rate of 110, complained of weakness, but no chest pain. Has some shortness of breath. No pedal edema, palpitations, or syncope. I recommend for now not to do a ny more extensive workup. She has had a recent echo that was fairly unremarkable. She has pulmonary hypertension, normal ejection fraction. I think we need to increase her Betapace to 160 b.i.d. She will be a very poor candidate for amiodarone. She is almost 89. I am not so sure how aggressive th e family wants to be as follows ablation and/or pacemaker. I will discuss the case further with the family and Dr. Narayanan. Both of her problems are stable at this point. I will follow her along with Dr John Narayanan. TENISHA/DUONG Voice ID: [id number] Report ID: [id number]
[2017-08-22] MEDS ORDERED: ATORVASTATIN 40 MG TAB PO SCH (21:00)
[2017-08-22] MEDS ORDERED: ASPIRIN EC 81 MG TAB PO SCH (21:00)
--- NOTE | 2017-08-23 02:07 | PN ---
Date of Progress Note: 08/22/2017 Subjective: The patient was seen this morning for followup. No new complaints or problems reported. Objective: vital Signs: Reviewed. HEENT: Unremarkable. Lungs: Clear to auscultation. Heart: Heart sounds normal. Abdomen: Soft. Bowel sounds normal. No guarding, rigidity, tenderness, or distention. Extremities: No leg edema. Impression: 1.Atrial fibrillation with rapid ventricular rate. 2.Hypertension. 3.Aortic valve stenosis. Plan: We will continue current medications. Dr. Mendes has increased the patient's sotalol dose. We will continue to follow up tomorrow morning, possible discharge tomorrow depending on the patient' s condition. YENY/MODL Voice ID: [id number] Report ID: [id number]
[2017-08-23] MEDS: SOTALOL HCL 80 MG TAB PO SCH (05:32)
[2017-08-23] MEDS: LEVOTHYROXINE SOD 0.075 MG TAB PO SCH (05:32)
[2017-08-23] MEDS: PANTOPRAZOLE 40MG TABLET PO SCH (05:33)
[2017-08-23] MEDS: HYDRALAZINE HCL 25 MG TABLET PO SCH (08:43)
[2017-08-23] MEDS: SENOSIDES 8.6 MG TAB PO SCH (08:43)
[2017-08-23] MEDS: CETIRIZINE HCL 5 MG TABLET PO SCH (08:43)
[2017-08-23] MEDS: CALCIUM CARB 500MG/VIT D 200 IU TAB PO SCH (08:44)
[2017-08-23] MEDS: DOXAZOSIN 2 MG TAB PO SCH (08:44)
[2017-08-23] MEDS: FLUOXETINE 20 MG CAP PO SCH (08:44)
[2017-08-23] MEDS: MAXZIDE (HCTZ 25/TRIAMTERENE 37.5MG) TAB PO SCH (08:45)
[2017-08-23] MEDS: NIFEdipine 10 MG CAP PO SCH (08:46)
[2017-08-23] MEDS: ENOXAPARIN 60 MG/0.6 ML SQ SCH (08:48)
[2017-08-23] MEDS: POLYETHYL GLY 3350 17 GM/DOSE PO SCH (08:48)
[2017-08-23 08:49] VITALS: BP 172/76
[2017-08-23 09:22] VITALS: TEMP 97.1
--- NOTE | 2017-08-23 09:25 | EKG ---
Test Date: 2017-08-23 Test Time: 07:09:59 Director Toxicology: KARLA MEASUREMENT RESULTS: Intervals: Rate: 63 NE: 150 QRSD: 76 QT: 526 QTc: 538 [place]: P: 20 NE: 150 QRS: 19 T: 26 INTERPRETIVE STATEMENTS: Normal sinus rhythm Prolonged QT Abnormal ECG Compared to ECG 08/18/2017 07:14:58 Left ventricular hypertrophy no longer present Electronically Signed On 08-23-17 09:24:19 CDT by Pascual Charles
--- NOTE | 2017-08-24 06:04 | DS ---
Date of Discharge: 08/23/2017 Disposition: Discharged to go home. Physical Examination: HEENT: Unremarkable. Lungs: Clear to auscultation. Heart: Sounds normal. Abdomen: Soft, bowel sounds normal. No guarding, rigidity, tenderness, or distention. Extremities: No leg edema. Discharge Medications: Continue all prior home medications as per discharge instruction from hospital given last week except change sotalol 80 mg patient to take 2 tablets by mouth 2 times a day. Followup: Follow with Dr. Mendes in 1 week and follow up with my office in 2 weeks. Hospital Course: An 89-year-old female patient, who was admitted to the hospital after she presented to the office not feeling good. Please see dictated H and P for more information. The patient was evaluated at the office. She was admitted to the hospital with atrial fibrillation with rapid ventricular rate. Upon admission, she was given 1 dose of IV Lopressor and Dr. Mendes from Cardiology was consulted. He increased the dose of sotalol from 80 mg 2 times a day to 160 mg 2 times a day. The patient did convert to normal sinus rhythm with this. This morning when I saw her, she was feeling much better since she converted to sinus rhythm. DNR order was written in the chart per my discussion with the patient as per her decision. Laboratory Data: Labs done during this hospitalization; white count 10.2, hemoglobin 14.3, platelets 300. Sodium 132, potassium 4, chloride 96, bicarb 30 , BUN 21, creatinine 1, glucose 141. Liver function tests unremarkable. TSH 3.78. Discharge Diagnoses: 1. Atrial fibrillation with rapid ventricular rate. 2. Hypertension. 3. Coronary artery disease, aortic wall the LV stenosis, moderate. 4. Hyperlipidemia. 5. Hypothyroidism. 6. Gastroesophageal reflux disease. 7. Osteoarthritis, multiple sites. 8. Aortic valve the LV stenosis, moderate. YENY/MODL Voice ID: [id number] Report ID: [id number] MTDJessica
== END 2017-08-23 10:34 | disposition home or self-care (01) ==
LOC: 4TH 19:21 → INTOOBSV 19:21
PROVIDERS: ADMIT Internal Medicine; ATTEND Internal Medicine
DX: I48.91 Unspecified atrial fibrillation (principal); I10 Essential (primary) hypertension; I25.10 Atherosclerotic heart disease of native coronary artery without angina pectoris; E78.5 Hyperlipidemia, unspecified; E03.9 Hypothyroidism, unspecified; K21.9 Gastro-esophageal reflux disease without esophagitis; M19.90 Unspecified osteoarthritis, unspecified site; I35.0 Nonrheumatic aortic (valve) stenosis; Z95.5 Presence of coronary angioplasty implant and graft
CPT/HCPCS: 36415; 80053; 82550; 82553; 83735; 84145; 84439; 84443; 84484; 85025; 93005; G0378; G0379; J1650 ×4